=== PATIENT | male | born 1965 | race Caucasian/White ===

== ENCOUNTER → 2017-08-09 16:39 | Outpatient (CLI) | payer OTHER, SELFPAY | PROVIDERS: Family Provider Family Medicine; PCP Family Medicine; Visit Provider Podiatrist | DX: L03.031 Cellulitis of right toe (principal) | CPT/HCPCS: 87070; 87077; 87186; 87205 ==

== ENCOUNTER → 2018-04-25 15:34 | Outpatient (CLI) | payer OTHER, SELFPAY ==
[2017-01-04 17:18] VITALS: BMI 32.2
[2018-04-25 18:18] LABS: Anion Gap 9 (5-15); BUN 23 mg/dL (7-18); BUN/Creat Ratio 19.2 RATIO (10-20); Calcium,Total 9.4 mg/dL (8.5-10.1); Chloride 107 mmol/L (98-107); EST Glomerular Filtration Rate 67 mL/min (>60); Est Glom Filt Rate - Afr Amer 81 mL/min (>60); Glucose 85 mg/dL (74-106); Potassium 3.8 mmol/L (3.5-5.1); Sodium Level 144 mmol/L (136-145); T4 Total, Thyroxin 6.2 ug/dL (4.5-12.1); Thyroid Stim Hormone (TSH) 1.52 uIU/mL (0.358-3.74)
== END ==
PROVIDERS: Family Provider Family Medicine; PCP Family Medicine; Visit Provider Family Medicine
DX: I10 Essential (primary) hypertension (principal); E03.9 Hypothyroidism, unspecified
CPT/HCPCS: 36415; 80048; 84436; 84443

== ENCOUNTER → 2018-10-22 15:54 | Outpatient (CLI) | payer OTHER, SELFPAY ==
[2017-01-04 17:18] VITALS: BMI 32.2
--- NOTE | 2018-10-22 15:59 | RAD_ITS ---
STUDY: X-RAY - RIGHT HAND REASON FOR EXAM: Male, 52 years old. Arthritis. TECHNIQUE: 3 view(s) of the hand. COMPARISON: None. FINDINGS: Normal radiocarpal articulation. Normal distal radioulnar joint. Normal visualized carpal bones. Normal carpal articulations Normal carpometacarpal articulation of the thumb. Normal second through fifth carpometacarpal joints. Normal metacarpi. Normal metacarpophalangeal joint of the thumb. Normal interphalangeal joint of the thumb. Normal proximal and distal phalanges of the thumb. Normal metacarpophalangeal joints of the second through fifth fingers. Normal proximal and distal interphalangeal joints of the second through fifth fingers. Normal phalanges of the second through fifth fingers. The soft tissue structures are unremarkable. RAD/Hand Min 3 Views IMPRESSION: Normal x-ray examination of the hand. Electronically Signed: Antelmo Frost MD at 16:48 EDT , Service support ,
[2018-10-22 17:40] LABS: Anion Gap 7 (5-15); BUN 21 mg/dL (7-18); BUN/Creat Ratio 17.1 RATIO (10-20); Calcium,Total 9.2 mg/dL (8.5-10.1); Chloride 104 mmol/L (98-107); Creatinine, Serum 1.23 mg/dL (0.70-1.30); EST Glomerular Filtration Rate 65 mL/min (>60); Est Glom Filt Rate - Afr Amer 79 mL/min (>60); Glucose 85 mg/dL (74-106); Potassium 3.4 mmol/L (3.5-5.1); Sodium Level 137 mmol/L (136-145)
== END ==
PROVIDERS: Family Provider Family Medicine; PCP Family Medicine; Referring Provider Family Medicine; Visit Provider Family Medicine
DX: I10 Essential (primary) hypertension (principal); M19.049 Primary osteoarthritis, unspecified hand
CPT/HCPCS: 36415; 73130; 80048

== ENCOUNTER 2018-11-25 20:23 | Emergency (ER) | payer OTHER, SELFPAY ==
[2018-11-25 20:24] VITALS: BP 122/79; PULSE 73; RESP 15; TEMP 36.6; O2SAT 96; BMI 31.9
--- NOTE | 2018-11-25 20:45 | RAD_ITS ---
STUDY: X-RAY - LEFT KNEE REASON FOR EXAM: Male, 52 years old. Pain TECHNIQUE: 4 view(s) of the knee. COMPARISON: None. FINDINGS: Total left knee arthroplasty is present. There is no evidence of complication. There is no fracture or dislocation. Soft tissues are within normal limits. RAD/Knee 4 or More Views IMPRESSION: No fracture or dislocation. Intact left knee arthroplasty. Electronically Signed: Favio Rosas, at 21:07 EDT Tel , Service support ,
--- NOTE | 2018-11-25 20:47 | US_ITS ---
STUDY: VENOUS DOPPLER ULTRASOUND - LEFT LOWER EXTREMITY REASON FOR EXAM: Male, 52 years old. Left leg tightness and swelling TECHNIQUE: Ultrasound evaluation of the deep vein system to include lantigua-scale imaging and compression was performed. Lantigua-scale imaging and Doppler sonographic evaluation, including duplex spectral analysis and qualitative color flow sonography, was performed. COMPARISON: None. FINDINGS: Common Femoral Vein: Normal compression, spontaneity and augmentation. Normal color Doppler. Common Femoral Vein/Greater Saphenous Junction: Normal compression, spontaneity and augmentation. Normal color Doppler. Deep Femoral Vein: Normal compression, spontaneity and augmentation. Normal color Doppler. Femoral Proximal: Normal compression, spontaneity and augmentation. Normal color Doppler. Femoral Middle: Normal compression, spontaneity and augmentation. Normal color Doppler. Femoral Distal: Normal compression, spontaneity and augmentation. Normal color Doppler. Popliteal Vein: Normal compression, spontaneity and augmentation. Normal color Doppler. Posterior Tibial Vein: Normal compression, spontaneity and augmentation. Normal color Doppler. Peroneal Vein: Normal compression, spontaneity and augmentation. Normal color Doppler. US/Venous Duplex Imag/Limited/Uni IMPRESSION: Normal venous Doppler ultrasound of the lower extremity. Electronically Signed: Favio Rosas, at 21:26 EDT Tel , Service support ,
--- NOTE | 2018-11-25 20:59 | ED.VISSUMM ---
- ER Visit Summary Date of Service: 11/25/18 Chief Complaint: Left lower extremity pain History of Present Illness: The patient is a 52 M presenting with left lower extremity pain. Patient states this started yesterday. He denies injury. He has a history of previous left knee replacement. He states he began having pain in his left knee and now left calf. 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 He denies chest pain or shortness of breath. Denies other PE/DVT risk factors. Denies other complaints. Physical Examination: Vitals are stable. Patient is afebrile. Alert no acute distress. HEENT exam is unremarkable. Neck is supple. Lungs are clear and equal bilaterally. Heart is regular rate and rhythm. Extremities left knee active full range of motion, no erythema or warmth. Mild left calf tenderness with normal distal pulses. No erythema, warmth, or swelling. Skin is warm and dry. No focal neurologic deficit. Remainder of exam is unremarkable. Emergency Department Course and Treatment: Left knee x-ray shows no fracture or dislocation. Intact left knee arthroplasty. Left lower extremity venous Doppler shows normal venous Doppler ultrasound of the lower extremity. Advised to continue NSAIDs for pain. Advised to follow-up with primary care physician. Advised return to ED for worsening complaints. Disposition: Discharge home Impression: Left lower extremity pain This note was generated with Danger dictation software. It may contain incorrect words, spelling, and punctuation that were not noted in review of the chart prior to signing ED Disposition - Plan for ED Patient: Instructions: Muscle Spasm Referrals: Claudia Thomas MD [Primary Care Provider] - Slava Cook MD [NON-STAFF] -
--- NOTE | 2018-11-25 21:42 | ED.DEP ---
ED Disposition - Plan for ED Patient: Instructions: Muscle Spasm Referrals: Claudia Thomas MD [Primary Care Provider] - Slava Cook MD [NON-STAFF] -
[2018-11-25 21:57] VITALS: BP 118/78; PULSE 74; RESP 16; O2SAT 99
== END 2018-11-25 21:58 | disposition home or self-care (01) ==
PROVIDERS: Emergency Provider Emergency Medicine; Family Provider Family Medicine; PCP Family Medicine
DX: M79.605 Pain in left leg (principal); M25.562 Pain in left knee; I10 Essential (primary) hypertension; Z79.899 Other long term (current) drug therapy; Z96.652 Presence of left artificial knee joint
CPT/HCPCS: 73564; 93971; 99282

== ENCOUNTER → 2019-04-21 16:24 | Outpatient (CLI) | payer OTHER, SELFPAY ==
[2019-04-21 18:00] LABS: Anion Gap 4 (5-15); BUN 21 mg/dL (7-18); BUN/Creat Ratio 17.6 RATIO (10-20); Calcium,Total 9.9 mg/dL (8.5-10.1); Chloride 107 mmol/L (98-107); Cholesterol 203 mg/dL (200); Creatinine, Serum 1.19 mg/dL (0.70-1.30); EST Glomerular Filtration Rate 68 mL/min (>60); Est Glom Filt Rate - Afr Amer 82 mL/min (>60); Glucose 90 mg/dL (74-106); High Density Lipoprotein 58 mg/dL; Potassium 3.7 mmol/L (3.5-5.1); Sodium Level 138 mmol/L (136-145); T4 Total, Thyroxin 9.3 ug/dL (4.5-12.1); Thyroid Stim Hormone (TSH) 1.89 uIU/mL (0.358-3.74); Triglycerides 192 mg/dL; Very Low Density Lipoprotein 38 mg/dL (5-40)
== END ==
PROVIDERS: Family Provider Family Medicine; PCP Family Medicine; Referring Provider Family Medicine; Visit Provider Family Medicine
DX: I10 Essential (primary) hypertension (principal); E03.9 Hypothyroidism, unspecified
CPT/HCPCS: 36415; 80048; 80061; 84436; 84443

== ENCOUNTER → 2019-05-04 16:08 | Outpatient (CLI) | payer OTHER, SELFPAY ==
[2019-05-04 17:47] LABS: PSA,Total - Annual Screen 1.44 ng/mL (0.00-4.00)
== END ==
PROVIDERS: PCP Family Medicine; Visit Provider Family Medicine
DX: Z00.00 Encounter for general adult medical examination without abnormal findings (principal)
CPT/HCPCS: 36415; 84153; G0103

== ENCOUNTER → 2019-10-20 16:26 | Outpatient (CLI) | payer OTHER, SELFPAY ==
[2019-10-20 18:10] LABS: Anion Gap 9 (5-15); BUN 19 mg/dL (7-18); Calcium,Total 9.2 mg/dL (8.5-10.1); Chloride 103 mmol/L (98-107); Creatinine, Serum 1.19 mg/dL (0.70-1.30); EST Glomerular Filtration Rate 68 mL/min (>60); Est Glom Filt Rate - Afr Amer 82 mL/min (>60); Glucose 111 mg/dL (74-106); Potassium 3.5 mmol/L (3.5-5.1); Sodium Level 138 mmol/L (136-145)
== END ==
PROVIDERS: PCP Family Medicine; Referring Provider Family Medicine; Visit Provider Family Medicine
DX: I10 Essential (primary) hypertension (principal)
CPT/HCPCS: 36415; 80048

== ENCOUNTER → 2020-11-11 13:56 | Outpatient (CLI) | payer OTHER, SELFPAY ==
[2020-11-11 17:58] LABS: Anion Gap 7 (5-15); BUN 22 mg/dL (7-18); BUN/Creat Ratio 20.2 RATIO (10-20); Calcium,Total 9.2 mg/dL (8.5-10.1); Chloride 105 mmol/L (98-107); Creatinine, Serum 1.09 mg/dL (0.70-1.30); EST Glomerular Filtration Rate 74 mL/min (>60); Est Glom Filt Rate - Afr Amer 90 mL/min (>60); Glucose 93 mg/dL (74-106); Potassium 3.5 mmol/L (3.5-5.1); Sodium Level 138 mmol/L (136-145)
== END ==
PROVIDERS: PCP Family Medicine; Referring Provider Family Medicine; Visit Provider Family Medicine
DX: I10 Essential (primary) hypertension (principal)
CPT/HCPCS: 36415; 80048

== ENCOUNTER → 2020-12-12 10:40 | Outpatient (CLI) | payer OTHER, SELFPAY | PROVIDERS: PCP Family Medicine; Visit Provider Family Medicine | DX: I10 Essential (primary) hypertension (principal) | CPT/HCPCS: 36415; 86769 ==

== ENCOUNTER 2021-07-14 16:00 | Outpatient (CLI) | payer OTHER, SELFPAY ==
[2021-07-14 18:30] LABS: Anion Gap 8 (5-15); BUN 23 mg/dL (7-18); BUN/Creat Ratio 19.2 RATIO (10-20); Calcium,Total 9.4 mg/dL (8.5-10.1); Chloride 105 mmol/L (98-107); Cholesterol 198 mg/dL (200); EST Glomerular Filtration Rate 66 mL/min (>60); Est Glom Filt Rate - Afr Amer 80 mL/min (>60); Glucose 89 mg/dL (74-106); High Density Lipoprotein 49 mg/dL; Potassium 3.7 mmol/L (3.5-5.1); Sodium Level 139 mmol/L (136-145); T4 Total, Thyroxin 9.2 ug/dL (4.5-12.1); Thyroid Stim Hormone (TSH) 3.39 uIU/mL (0.358-3.74); Triglycerides 136 mg/dL; Very Low Density Lipoprotein 27 mg/dL (5-40)
== END 2021-07-14 23:59 | disposition home or self-care (01) ==
LOC: MFPLAB 16:01
PROVIDERS: PCP Family Medicine; Referring Provider Family Medicine; Visit Provider Family Medicine
DX: I10 Essential (primary) hypertension (principal); E03.9 Hypothyroidism, unspecified
CPT/HCPCS: 36415; 80048; 80061; 84436; 84443

== ENCOUNTER → 2022-06-18 | Outpatient (CLI) | payer OTHER, SELFPAY ==
[2022-06-18 17:35] LABS: Absolute Lymphocyte Count 1.48 X10^3/uL (0.83-4.51); Absolute Neutrophil Count 3.3 X10^3/uL (2.0-7.7); Basophil# 0.09 X10^3/uL; Basophil% 1.6 % (0-1); Eosinophil# 0.32 X10^3/uL; Eosinophils% 5.6 % (0-5); Hematocrit 46.1 % (40-54); Hemoglobin 15.6 g/dL (13.0-16.5); Lymphocyte # 1.48 X10^3/ul (0.83-4.51); Lymphocyte % 25.8 % (19-41); Mean Corp Hgb Conc 33.8 g/dL (32-36); Mean Corpuscular Hgb 30.2 pg (27.0-32.0); Mean Corpuscular Volume 89.3 fL (80-94); Mean Platelet Vol. 10.2 fl (6.2-12.0); Monocyte# 0.49 X10^3/uL; Monocyte% 8.6 % (0-10); NRBC Flagged by Analyzer 0 % (0-5); Neutrophil # 3.33 X10^3/uL (2.7-7.7); Neutrophil % 58.1 % (47-70); Platelet Count 282 K/mm3 (150-450); RBC Distribution Width CV 12.1 % (11.6-14.6); RBC Distribution Width SD 39.8 fl (35.1-43.9); Red Blood Count 5.16 M/mm3 (4.6-6.2); White Blood Count 5.7 K/mm3 (4.4-11.0)
[2022-06-18 17:57] LABS: ALB/GLOB Ratio 1.2 RATIO (0.9-2.4); AST(SGOT) 19 U/L (15-37); Alanine Aminotransfer ALT/SGPT 38 U/L (16-61); Alkaline Phosphatase 57 U/L (45-117); Anion Gap 7 (5-15); BUN 21 mg/dL (7-18); BUN/Creat Ratio 18.6 RATIO (10-20); Calcium,Total 9.7 mg/dL (8.5-10.1); Chloride 105 mmol/L (98-107); Creatinine, Serum 1.13 mg/dL (0.70-1.30); EST Glomerular Filtration Rate 71 mL/min (>60); Est Glom Filt Rate - Afr Amer 86 mL/min (>60); Globulin 3.2 g/dL (2.2-4.2); Glucose 90 mg/dL (74-106); Potassium 3.5 mmol/L (3.5-5.1); Protein, Total 7.2 g/dL (6.4-8.2); Sodium Level 139 mmol/L (136-145)
== END | disposition home or self-care (01) ==
LOC: MFPLAB 14:55
PROVIDERS: PCP Family Medicine; Visit Provider Family Medicine
DX: I10 Essential (primary) hypertension (principal)
CPT/HCPCS: 36415; 80053; 85025

== ENCOUNTER → 2022-07-27 | Outpatient (CLI) | payer OTHER, SELFPAY ==
[2022-07-27 17:45] LABS: Absolute Lymphocyte Count 1.32 X10^3/uL (0.83-4.51); Absolute Neutrophil Count 3.8 X10^3/uL (2.0-7.7); Basophil# 0.07 X10^3/uL; Basophil% 1.2 % (0-1); Eosinophil# 0.24 X10^3/uL; Eosinophils% 4.1 % (0-5); Hematocrit 43.8 % (40-54); Hemoglobin 14.9 g/dL (13.0-16.5); Lymphocyte # 1.32 X10^3/ul (0.83-4.51); Lymphocyte % 22.4 % (19-41); Mean Corpuscular Hgb 30.4 pg (27.0-32.0); Mean Corpuscular Volume 89.4 fL (80-94); Mean Platelet Vol. 10.2 fl (6.2-12.0); Monocyte# 0.48 X10^3/uL; Monocyte% 8.1 % (0-10); NRBC Flagged by Analyzer 0 % (0-5); Neutrophil # 3.77 X10^3/uL (2.7-7.7); Platelet Count 288 K/mm3 (150-450); RBC Distribution Width CV 12.3 % (11.6-14.6); RBC Distribution Width SD 40.6 fl (35.1-43.9); White Blood Count 5.9 K/mm3 (4.4-11.0)
[2022-07-27 18:01] LABS: ALB/GLOB Ratio 1.3 RATIO (0.9-2.4); AST(SGOT) 24 U/L (15-37); Alanine Aminotransfer ALT/SGPT 39 U/L (16-61); Albumin, Serum 4.1 g/dL (3.2-5.0); Alkaline Phosphatase 55 U/L (45-117); Anion Gap 5 (5-15); BUN 25 mg/dL (7-18); BUN/Creat Ratio 20.3 RATIO (10-20); Calcium,Total 9.4 mg/dL (8.5-10.1); Chloride 108 mmol/L (98-107); Creatinine, Serum 1.23 mg/dL (0.70-1.30); EST Glomerular Filtration Rate 64 mL/min (>60); Est Glom Filt Rate - Afr Amer 78 mL/min (>60); Globulin 3.1 g/dL (2.2-4.2); Glucose 91 mg/dL (74-106); Potassium 3.4 mmol/L (3.5-5.1); Protein, Total 7.2 g/dL (6.4-8.2); Sodium Level 138 mmol/L (136-145)
== END | disposition home or self-care (01) ==
LOC: MFPLAB 16:26
PROVIDERS: PCP Family Medicine; Visit Provider Family Medicine
DX: I10 Essential (primary) hypertension (principal)
CPT/HCPCS: 36415; 80053; 85025

== ENCOUNTER 2022-10-12 08:00 | Outpatient (RCR) | payer BC, OTHER, SELFPAY ==
--- NOTE | 2022-09-25 08:29 | HP.PTEVAL_ITS ---
Patient's Visit Information LEEROY BURNS is a 56 year old M referred to Physical Therapy by TRAY RAMIREZ with a diagnosis of H/O BILATERAL KNEE REPLACEMENT. Date of Evaluation: 09/25/22 Physical Therapist: Flakito Rae, PT, Cert MDT, OCS - Visit Plan Frequency: 2x /Week Duration: 4 Weeks Plan: PT INTERVENTIONS ROM/FLEXABLITY KNEE ,STRENGHTHENING QUADS/HAMS/HIP ,FUNCTIONAL STRENGTHENING AND NUSTEPS/BIKE - Subjective This 56 y/o male presents physical therapy with h/o bilateral knee replacement. Patient had revision left TKR due failed due to recall. Patient underwent s/o left TKR revision on August 27 at [facility] done by Dr Cook . Patient d/c next day initially with FWW and transition to cane then no device. Patient had 3 weeks [facility] PT .Patient denies paresthesia/tingling. Patient has tightness no pain knee but thigh soreness, Patient has some edema. Patient has 1 story home with 2 steps entrance. Patient is off work 2 weeks . RTW `~ 1month. Patient condition affects QOL and function. Patient goals to Return to normal. SOCIAL: . 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 GAIT: reciprocal pattern mild antalgic gait left. NEURO: denies paresthesia/tingling. JOINT LINE :47.2 cm. 6 ABOVE JOINT LINE: 53.cm. AROM: 0-115 supine knee flexion. MMT:( peak force) quads 48 cm ,hamstrings 36.8. STAIRS : alternating with rails - Balance/Special Test Scores Lower Extremity Functional Score: 44 - Goals Goal 1:: I with HEP for TKA Goal Time Frame: 4-6 Weeks Goal 2:: Patient to improve knee flexion 120 degrees to improve stairs and function Goal Time Frame: 4-6 Weeks Goal 3:: Patient to improve peak force quads/hams by 5-10 to improve function Goal Time Frame: 4-6 Weeks Goal 4:: Patient to improve LFES score by 10 points to improve QOL and RTW Goal Time Frame: 4-6 Weeks Goal 5:: Patient to demonstrate 80% improvement to return to prior level of function Goal Time Frame: 4-6 Weeks - Rehabilitation Potential Physical Therapy Diagnosis: Patient underwent s/p revision left TKA with decrease ROM ,strength ,and return to prior level of function thus benefit from skilled PT Rehabilitation Potential: Good - Anticipated Interventions Patient/Client Instruction: Educate patient on: Condition, Plan of Care For the Purpose of:: To decrease pain, To increase ROM, To improve muscle performance and motor function, To increase tolerance to activity/condition/position, To improve ability of physical actions for home/community/work/leisure, To improve health of tissue, To decrease soft tissue restriction, To increase flexibility/ROM, To prevent re-injury Therapeutic Exercise to Include: Strength training, Flexibilty training, Passive ROM, Active ROM For the Purpose of:: To decrease pain, To increase ROM, To improve muscle performance and motor function, To increase tolerance to activity/condition/position, To improve ability of physical actions for home/community/work/leisure, To improve health of tissue, To decrease soft tissue restriction, To increase flexibility/ROM, To reduce risk of recurrence, To improve tolerance to ADL's Thank you for the opportunity to evaluate your patient. For Medicare and Medicare HMO plans, please review the plan of care and approve it. It will need to be FAXED BACK to us at [phone] for Medicare purposes. For Medicare only, by signing this I certify the plan of care. Please let me know if there are questions or concerns regarding this plan of care. Physician Signature: Date:
--- NOTE | 2022-10-12 08:34 | HP.PTDCSUM ---
Discharge Summary D/C summary: It has been my pleasure to treat LEEROY BURNS referred by TRAY RAMIREZ, with the diagnosis of H/O BILATERAL KNEE REPLACEMENT for a total of 6 visit(s). Discharge Date: 10/12/22 Please see the following information for a summary of their discharge status. Subjective Subjective: Ready for d/c. Seen Saturday doing great .. ready for d/c Pain Right Knee: Pain Intensity (Out of 10): 0 Overall Improvement % Improvement: 100 Objective Objective/Function: OSTURE: WFL GAIT: reciprocal pattern normal tiki . NEURO: denies paresthesia/tingling. JOINT LINE :46.2 cm. 6 ABOVE JOINT LINE: 50.cm. AROM: 0-20 supine knee flexion. MMT:( peak force) quads 49,2 cm ,hamstrings 39.8. STAIRS : alternating with rails Goals Goal 1:: I with HEP for TKA Goal Progress: Goal Met Goal 2:: Patient to improve knee flexion 120 degrees to improve stairs and function Goal Progress: Goal Met Goal 3:: Patient to improve peak force quads/hams by 5-10 to improve function Goal Progress: Goal Met Goal 4:: Patient to improve LFES score by 10 points to improve QOL and RTW Goal Progress: Goal Met Goal 5:: Patient to demonstrate 80% improvement to return to prior level of function Goal Progress: Goal Met Plan Plan: D/C D/C Information Discharge Comments: hep d/c sentence: If there are questions or concerns regarding this patient's physical therapy, please feel free to call me at [phone]. Thank you for the referral of this patient. Sincerely, Flakito Rae, PT, Cert MDT, OCS Balance/Gait/Functional tests Balance/Special Test Scores Lower Extremity Functional Score: 68 Tug Test: <10 sec.=free mobile WOMAC Total Score: 0 WOMAC Percentage: 100
--- NOTE | 2022-10-12 08:39 | HP.PTDCSUM ---
Discharge Summary D/C summary: It has been my pleasure to treat LEEROY BURNS referred by TRAY RAMIREZ, with the diagnosis of H/O BILATERAL KNEE REPLACEMENT for a total of 6 visit(s). Discharge Date: 10/12/22 Please see the following information for a summary of their discharge status. Subjective Subjective: Ready for d/c. Seen Saturday doing great .. ready for d/c Pain Right Knee: Pain Intensity (Out of 10): 0 Overall Improvement % Improvement: 100 Objective Objective/Function: OSTURE: WFL GAIT: reciprocal pattern normal tiki . NEURO: denies paresthesia/tingling. JOINT LINE :46.2 cm. 6 ABOVE JOINT LINE: 50.cm. AROM: 0-120 supine knee flexion. MMT:( peak force) quads 49,2 cm ,hamstrings 39.8. STAIRS : alternating with rails Goals Goal 1:: I with HEP for TKA Goal Progress: Goal Met Goal 2:: Patient to improve knee flexion 120 degrees to improve stairs and function Goal Progress: Goal Met Goal 3:: Patient to improve peak force quads/hams by 5-10 to improve function Goal Progress: Goal Met Goal 4:: Patient to improve LFES score by 10 points to improve QOL and RTW Goal Progress: Goal Met Goal 5:: Patient to demonstrate 80% improvement to return to prior level of function Goal Progress: Goal Met Plan Plan: D/C D/C Information Discharge Comments: hep d/c sentence: If there are questions or concerns regarding this patient's physical therapy, please feel free to call me at [phone]. Thank you for the referral of this patient. Sincerely, Flakito Rae, PT, Cert MDT, OCS Balance/Gait/Functional tests Balance/Special Test Scores Lower Extremity Functional Score: 68 Tug Test: <10 sec.=free mobile WOMAC Total Score: 0 WOMAC Percentage: 100
== END 2022-10-12 19:00 | disposition home or self-care (01) ==
LOC: PT 08:00
PROVIDERS: PCP Family Medicine; Referring Provider Nurse Practitioner Family; Visit Provider Nurse Practitioner Family
DX: Z96.653 Presence of artificial knee joint, bilateral (principal)
CPT/HCPCS: 97110; 97162

== ENCOUNTER → 2023-08-12 | Outpatient (CLI) | payer BC, SELFPAY ==
[2023-08-12 17:41] LABS: Protein, Urine (Random) 13.9 mg/dL (<11.9); Protein:Creat Ratio 86 mg/g CRE (0-200)
[2023-08-12 18:11] LABS: Anion Gap 7 (5-15); BUN 21 mg/dL (7-18); BUN/Creat Ratio 17.1 RATIO (10-20); Calcium,Total 9.3 mg/dL (8.5-10.1); Chloride 108 mmol/L (98-107); Cholesterol 199 mg/dL (200); Creatinine, Serum 1.23 mg/dL (0.70-1.30); EST Glomerular Filtration Rate 64 mL/min (>60); Est Glom Filt Rate - Afr Amer 78 mL/min (>60); Glucose 109 mg/dL (74-106); High Density Lipoprotein 44 mg/dL; PSA,Total - Annual Screen 1.79 ng/mL (0.00-4.00); Potassium 3.3 mmol/L (3.5-5.1); Sodium Level 139 mmol/L (136-145); T4 Total, Thyroxin 8.7 ug/dL (4.5-12.1); Thyroid Stim Hormone (TSH) 2.16 uIU/mL (0.358-3.74); Triglycerides 189 mg/dL; Very Low Density Lipoprotein 38 mg/dL (5-40)
== END | disposition home or self-care (01) ==
PROVIDERS: PCP Family Medicine; Referring Provider Family Medicine; Visit Provider Family Medicine
DX: I10 Essential (primary) hypertension (principal); E03.9 Hypothyroidism, unspecified; Z12.5 Encounter for screening for malignant neoplasm of prostate
CPT/HCPCS: 36415; 80048; 80061; 82570; 84153; 84156; 84436; 84443; G0103

== ENCOUNTER 2024-01-09 18:00 | Outpatient (RCR) | payer BC, SELFPAY ==
--- NOTE | 2023-12-02 07:46 | HP.PTEVAL_ITS ---
Patient's Visit Information Visit Information Visit Information: LEEROY BURNS is a 57 year old M referred to Physical Therapy by JAVED CLARK with a diagnosis of metatarsalgia R foot. Date of Evaluation: 12/02/23 Physical Therapist: Saud Hernandez, DPT, OCS, CSCS Visit Plan Frequency: 2x /Week Duration: 4-6 Weeks Plan: 2x/week for 3-6 week for 1. US top of r distal metatarsals nonthermal and DTR to same with foot STM 2. mobs and stretch to R big toe ext /flexion, and ankle DF. 3. foot intrinsic strengthening and increase blood flow add to HEP as able, IE HEP: towel toe curls, gastroc stretch, seated heel toe raises, big toe PROM extension with HO Subjective Subjective: L TKA revision one year ago. Got bursitis after taht but it is be tter. Now L foot feels good. R foot hurtsacross distal metatarsals. Worse early in day and better later in day . Expensive shoes H[employer] one help. It is top of distal foot. Has hurt for over a year and not changing, unsure of what started it. 5/10 am. Limping in the am but better at end of day. Sleep is OK. Mostly comfortable when not on it. has orthotic in [place] that doctor gave her. Does not help. 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 On feet all day, will start end of month. Wants to walk with . Cuts firewood. Started Hp workout last week and no problem, machines and cardio. Pain R foot pain.: Pain Intensity (Out of 10): 2 Pain Intensity Range: 0 and 5 Objective Objective: Limps on R foot avoiding pushoff due to pain in forefoot. I ambulation. Trasnfers I. Steps reciprocal without rail but lands on hindfoot on R side descending due to pain. hip and knee strength are 5/5 and good mobility, WFL. ankle ROM 2 Df R with some forefoot pain. and 4 L, PF, inv, evc symmetrical and without pain. Big toe extension R is 5 degrees and painful PROM and AROM similar, poor strength big toe R extension vs L 3 vs 4-. metatrsals very stiff B feet. tender to touch top of R 234 metatrasals to pressure up and down. gastroc mod tight B. Metatarsal squeeze positive on R. reflexes 2/3 patella adn achilles B. sensation LE WNL to gross light touch B LE. ankle strength 5/5 but PF painful R and 4+ due to pain Balance/Special Test Scores Lower Extremity Functional Score: 49 Goals Goal 1:: symmetrical PROM B big toes without pain Goal Time Frame: 4-6 Weeks Goal 2:: Pain in foot 75% better at 1/10 at worst and manageable Goal Time Frame: 4-6 Weeks Goal 3:: walk without antalgia in community Goal Time Frame: 4-6 Weeks Goal 4:: Descend steps on R forefoot without pain Goal Time Frame: 4-6 Weeks Goal 5:: LEFS 60 Goal Time Frame: 4-6 Weeks Rehabilitation Potential Physical Therapy Diagnosis: R foot pain and stiffness limiting comfortable walking and function Rehabilitation Potential: Fair Anticipated Interventions Patient/Client Instruction: Educate patient on: Condition and Plan of Care For the Purpose of:: To decrease pain, To increase ROM, To improve nutrient delivery to tissue and To increase tolerance to activity/condition/position Therapeutic Exercise to Include: Strength training, Postural training, Flexibilty training, Gait and locomotor training, Passive ROM and Active ROM For the Purpose of:: To decrease pain, To increase ROM, To improve nutrient delivery to tissue, To improve muscle performance and motor function and To increase tolerance to activity/condition/position Manual Therapy Techniques to Include: Trigger point massage, Mobilization, Passive ROM and Soft tissue mobilization For the Purpose of:: To decrease pain and To increase ROM Ultrasound (thermal/non thermal): Yes (nonthermal) For the Purpose of:: To decrease pain, To decrease swelling/inflammation and To improve nutrient delivery to tissue Text: Thank you for the opportunity to evaluate your patient. For Medicare and Medicare HMO plans, please review the plan of care and approve it. It will need to be FAXED BACK to us at [phone] for Medicare purposes. For Medicare only, by signing this I certify the plan of care. Please let me know if there are questions or concerns regarding this plan of care. Physician Signature: Date:
--- NOTE | 2024-01-09 18:48 | HP.PTDCSUM ---
Discharge Summary D/C summary: It has been my pleasure to treat LEEROY BURNS referred by JAVED CLARK, with the diagnosis of metatarsalgia R foot for a total of 7 visit(s). Discharge Date: 01/09/24 Please see the following information for a summary of their discharge status. Subjective Subjective: Getting better. Wearing good shoes today. Foot pain is much better. Got better shoes and it helped. 2/10 at times but not bad, mostly if sitting too long and can gets up. No f/u with doctor. 95% better. No activity deficits. Pain R foot pain.: Pain Intensity (Out of 10): 2 Overall Improvement % Improvement: 95 Objective Objective/Function: 20 degrees R big toe extension, very weak B big toe ext at 3+ in aviable ROM.MT are moving well in R foot and not painful. ankle AROM 7 DF, 55 PF, full inv and ev symmetrical with L. overall has done well adn will continue via HEP Orthotics might be approriate if pain returns. Walking without antalgia today and good pushoff B with hoka one shoes on. Goals Goal 1:: symmetrical PROM B big toes without pain Goal Progress: Goal Met Goal 2:: Pain in foot 75% better at 1/10 at worst and manageable Goal Progress: Goal Met Goal 3:: walk without antalgia in community Goal Progress: Goal Met Goal 4:: Descend steps on R forefoot without pain Goal Progress: not tested Goal 5:: LEFS 60 Goal Progress: Progressing Plan Plan: d/c to HEP D/C Information d/c sentence: If there are questions or concerns regarding this patient's physical therapy, please feel free to call me at [phone]. Thank you for the referral of this patient. Sincerely, Saud Hernandez, DPT, OCS, CSCS Balance/Gait/Functional tests Balance/Special Test Scores Lower Extremity Functional Score: 53 Improvement % Improvement: 95
== END 2024-01-09 19:00 | disposition home or self-care (01) ==
LOC: PT 18:00
PROVIDERS: PCP Family Medicine
DX: M62.461 Contracture of muscle, right lower leg (principal); M77.51 Other enthesopathy of right foot and ankle; M77.41 Metatarsalgia, right foot; M62.462 Contracture of muscle, left lower leg
CPT/HCPCS: 97035; 97110; 97140; 97161; 97530

== ENCOUNTER → 2024-07-24 | Outpatient (CLI) | payer BC, SELFPAY ==
[2024-07-24 18:42] LABS: Anion Gap 13 (5-15); BUN 20 mg/dL (4-19); BUN/Creat Ratio 17.9 RATIO (10-20); Calcium,Total 9.9 mg/dL (7.6-11.0); Carbon Dioxide 22.1 mmol/L (21.0-32.0); Chloride 105 mmol/L (98-108); Cholesterol 190 mg/dL (<=200); Creatinine, Serum 1.12 mg/dL (0.70-1.20); EST Glomerular Filtration Rate 76 (>60); Glucose 77 mg/dL (70-99); High Density Lipoprotein 48 mg/dL; Low Density Lipoprotein Calc. 110 mg/dL; Potassium 3.7 mmol/L (3.3-5.1); Sodium Level 140 mmol/L (133-145); T4 Total, Thyroxin 6.8 ug/dL (4.5-12.1); Triglycerides 159 mg/dL; Very Low Density Lipoprotein 32 mg/dL (5-40); cholesterol:hdl ratio screen 3.93
[2024-07-24 20:34] LABS: Protein, Urine (Random) 6.6 mg/dL (0.0-12.0); Protein:Creat Ratio 80 mg/g CRE (0-200)
== END | disposition home or self-care (01) ==
LOC: MFPLAB 15:41
PROVIDERS: PCP Family Medicine; Referring Provider Family Medicine; Visit Provider Family Medicine
DX: I10 Essential (primary) hypertension (principal); E03.9 Hypothyroidism, unspecified
CPT/HCPCS: 36415; 80048; 80061; 82570; 84156; 84436; 84443

== ENCOUNTER → 2024-08-31 | Outpatient (CLI) | payer BC, SELFPAY ==
[2024-08-31 18:08] LABS: PSA,Total - Annual Screen 1.29 ng/mL (0.02-4.00)
== END | disposition home or self-care (01) ==
PROVIDERS: PCP Family Medicine; Visit Provider Family Medicine
DX: Z12.5 Encounter for screening for malignant neoplasm of prostate (principal)
CPT/HCPCS: 36415; 84153; G0103

== ENCOUNTER 2024-09-24 15:00 | Outpatient (RCR) | payer BC, SELFPAY ==
--- NOTE | 2024-08-13 13:28 | HP.PTEVAL ---
Patient's Visit Information Visit Information Visit Information: LEEROY BURNS is a 58 year old M referred to Physical Therapy by Dr. Saud Roberto MD with a diagnosis of cervical radiculopathy. Date of Evaluation: 08/13/24 Physical Therapist: Saud Hernandez, DPT, OCS, CSCS Visit Plan Frequency: 2-3x /Week Duration: 4-6 Weeks Plan: 2-3x/week for 4-6 after vacation to [facility] adn STM R UT and shoulder with MH portable traction at home 2x/day 15-20 minutes ROM and stretching when better, pt to doctor Mid August and has recommended surgery if no better. Subjective Subjective: No better than previous yayo , injection did not help. Has wedding August 22 and needs to wait on any surgery til after that. will try muscle relaxers and henp product. Massage really helps. had traction at [facility] office and it seemed to help. Symptomes are R UT pain and neck at center of spine and down upper arm to elbow and numb middle finger intermittently but pain constant. Pain worse in am in arm ends up sleeping on side. 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 [place] in april have started it. Fusion Pain R neck: Pain Intensity (Out of 10): 4 Pain Intensity Range: 3 and 10 Comment: spreading mulch hurt. Objective Objective: Walks into PT stiff but I, trasnfers chair and bed I, Holds head slightly to L in posture and tends to hold R UE with L to try and take pressure off. UE aROM painful to elevate R UE but kirby with full ROM rotations and flexion, full ext flexion elbow, strong at 5/5 in UE without myotomal abnormalities. Good scapualr ROM B with pain R shoulder reflexes 2/3 bi and tri. sensation UE WNL to gross light touch. + c/s compression on R - alar ligament, - VAT cervical aROM r rotation 45 with pain, L 45 with pain, 45 ext with bad pain. - ext rotation lag test, - drop arm, slight + labral tests R. Balance/Special Test Scores Oswestry Neck Score: 15 Goals Goal 1:: 60 rotation cervical , 55 ext without pain Goal Time Frame: 4-6 Weeks Goal 2:: patient feel pain 80% better adn 1/10 at worst Goal Time Frame: 4-6 Weeks Goal 3:: sleep without waking. Goal Time Frame: 4-6 Weeks Goal 4:: work without increased pain Goal Time Frame: 4-6 Weeks Rehabilitation Potential Physical Therapy Diagnosis: neck stiffness and pain with radiculopathy causing b ad pain and limiting comfort. Rehabilitation Potential: Questionable Anticipated Interventions Patient/Client Instruction: Educate patient on: Condition and Plan of Care For the Purpose of:: To decrease pain, To increase ROM, To improve muscle performance and motor function and To increase tolerance to activity/condition/position Therapeutic Exercise to Include: Strength training, Postural training, Flexibilty training, Relaxation training, Passive ROM and Active ROM For the Purpose of:: To decrease pain, To increase ROM, To improve nutrient delivery to tissue, To improve muscle performance and motor function, To increase tolerance to activity/condition/position and To improve ability of physical actions for home/community/work/leisure Manual Therapy Techniques to Include: Mobilization, Passive ROM and Soft tissue mobilization For the Purpose of:: To decrease pain, To increase ROM, To improve nutrient delivery to tissue, To improve muscle performance and motor function, To increase tolerance to activity/condition/position and To improve gait and locomotor functions Thermo therapy (hot pack): Yes Intermittent cervical traction: Yes For the Purpose of:: To decrease pain, To increase ROM and To improve nutrient delivery to tissue Text: Thank you for the opportunity to evaluate your patient. For Medicare and Medicare HMO plans, please review the plan of care and approve it. It will need to be FAXED BACK to us at [phone] for Medicare purposes. For Medicare only, by signing this I certify the plan of care. Please let me know if there are questions or concerns regarding this plan of care. Physician Signature: Date:
--- NOTE | 2024-09-24 15:36 | HP.PTDCSUM ---
Discharge Summary D/C summary: It has been my pleasure to treat LEEROY BURNS referred by Dr. Saud Roberto MD, with the diagnosis of cervical radiculopathy for a total of 4 visit(s). Discharge Date: 09/24/24 Please see the following information for a summary of their discharge status. Subjective Subjective: Pain is up and down. Was a lot better last week but bad again this week in R arm and shoulder. Last week was second week on marijuana gummies. Traction does not help, DN helped temporarily but only for a couple hours. Been doing job pretty regularly, more lifting this week. Still wants to wait on surgery til February. Still on gabapentin. Not doing exercises at home, keeps neck moving. Pt wants to move on with life adn will consider surgery when the time is right. Pain R neck: Pain Intensity (Out of 10): 3 Overall Improvement % Improvement: 0 Objective Objective/Function: 40 B rotations and careful at end range today, 30 ext with pain and hesitancy. UE full aROM, R triceps slightly weak vs others. Still holds R arm protected most of recheck today either against body or laning R xtensing arm. Goals Goal 1:: 60 rotation cervical , 55 ext without pain Goal Progress: Not Progressing Goal 2:: patient feel pain 80% better adn 1/10 at worst Goal Progress: Not Progressing Goal 3:: sleep without waking. Goal Progress: Progressing, gummies Goal 4:: work without increased pain Goal Progress: Not Progressing Plan Plan: d/c to [facility] and pt to return to doctor when he needs more treatment/surgery D/C Information Discharge Comments: Pt wishes to deal with it until he cannot and then will contact doctor for possible surgery, will continue with gummies in meantime and reviewed activity modification today but pt not overly willing to avoid aggravating activities. d/c sentence: If there are questions or concerns regarding this patient's physical therapy, please feel free to call me at [phone]. Thank you for the referral of this patient. Sincerely, Saud Hernandez, DPT, OCS, CSCS Balance/Gait/Functional tests Balance/Special Test Scores Oswestry Neck Score: 15 Improvement % Improvement: 0
== END 2024-09-24 19:00 | disposition home or self-care (01) ==
LOC: PT 15:00
PROVIDERS: PCP Family Medicine; Referring Provider Orthopaedic Surgery Orthopaedic Surgery of the Spine; Visit Provider Orthopaedic Surgery Orthopaedic Surgery of the Spine
DX: M54.12 Radiculopathy, cervical region (principal)
CPT/HCPCS: 97012; 97140; 97161; 97530

== ENCOUNTER → 2025-01-26 | Outpatient (CLI) | payer BC, SELFPAY ==
[2025-01-26 19:06] LABS: AST(SGOT) 28 U/L (<=37); Alanine Aminotransfer ALT/SGPT 48 U/L (<=46); Albumin, Serum 4.9 g/dL (3.4-4.8); Alkaline Phosphatase 60 U/L (40-129); Anion Gap 13 (5-15); BUN 22 mg/dL (4-19); BUN/Creat Ratio 20.6 RATIO (10-20); Calcium,Total 10.0 mg/dL (7.6-11.0); Carbon Dioxide 22.7 mmol/L (21.0-32.0); Chloride 103 mmol/L (98-108); Globulin 2.5 g/dL (2.2-4.2); Glucose 125 mg/dL (70-99); Magnesium 2.3 mg/dL (1.5-2.2); Potassium 3.9 mmol/L (3.3-5.1)
== END | disposition home or self-care (01) ==
LOC: MFPLAB 14:32
PROVIDERS: PCP Family Medicine
DX: R25.2 Cramp and spasm (principal)
CPT/HCPCS: 36415; 80053; 83735